=== PATIENT | male | born 1980 | race Caucasian/White ===

== ENCOUNTER 2019-01-02 10:07 | Emergency (ER) | payer OTHER ==
[2019-01-02 10:12] VITALS: BP 106/60; PULSE 69; TEMP 96.8; BMI 27.9
--- NOTE | 2019-01-02 10:34 | PDOC ---
History of Present Illness - General Chief Complaint: Ear Problem Stated Complaint: PAULO EAR PAIN Time Seen by Provider: 01/02/19 10:18 History Source: Patient - History of Present Illness Timing/Duration: reports: week Past History - Past Medical History Allergies/Adverse Reactions: Allergies Allergy/AdvReac Type Severity Reaction Status Date / Time No Known Allergies Allergy Verified 01/02/19 10:12 COPD: No - Psycho Social/Smoking Cessation Hx Smoking History: Current every day smoker Information on smoking cessation initiated: No Review of Systems - Review of Systems Constitutional: No: Chills, Fever HEENTM: Yes: Ear Pain, Hearing Loss. No: Throat Pain *Physical Exam - Vital Signs Last Vital Signs Temp Pulse Resp BP Pulse Ox 96.8 F L 69 18 106/60 99 01/02/19 10:09 01/02/19 10:09 01/02/19 10:09 01/02/19 10:09 01/02/19 10:09 - Physical Exam General Appearance: Yes: Appropriately Dressed. No: Apparent Distress HEENT: positive: EOMI, ERNA, Normal ENT Inspection, Normal Voice, TMs Normal, Pharynx Normal, Other (hearing grossly intact). negative: Scleral Icterus (R), Scleral Icterus (L), TM Bulging, TM Dull, TM Erythema Neck: negative: Lymphadenopathy (R), Lymphadenopathy (L) Respiratory/Chest: negative: Respiratory Distress Integumentary: positive: Dry, Warm Neurologic: positive: Fully Oriented, Alert, Normal Mood/Affect Medical Decision Making - Medical Decision Making 01/02/19 10:32 38-year-old male, denies any past medical history, here with bilateral ear pain with possible decreased hearing for 1 week. No otorrhea, cough ,fever or chills. Not prone to ear infections per patient and no tobacco use. No history of similar condition see exam B/l ear pain of unclear etiology No findings on exam to explain source Dc w/ OTC meds prn pain and ENT f/u for further eval Discharge - Discharge Information Problems reviewed: Yes Clinical Impression/Diagnosis: Ear pain Qualifiers: Laterality: bilateral Qualified Code(s): H92.03 - Otalgia, bilateral Condition: Good Disposition: HOME - Follow up/Referral Referrals: Sami Bray MD [Staff Physician] - - Patient Discharge Instructions Patient Printed Discharge Instructions: DI for Ear Pain-Adult Additional Instructions: The cause of your ear pain is unclear at this time as your exam was normal here Take Motrin for pain as needed and call Dr. Bray of ENT tomorrow for an appointment - Post Discharge Activity
== END 2019-01-02 10:30 | disposition home or self-care (01) ==
LOC: JERFT 10:07
DX: H92.03 Otalgia, bilateral (principal)
CPT/HCPCS: 99281-25